=== PATIENT | female | born 1955 | race Caucasian/White ===

== ENCOUNTER 2018-05-27 14:15 | Observation (INO) ==
[2018-05-27] MEDS ORDERED: ZOFRAN INJ 4 MG VIAL IVP PRN (15:45)
[2018-05-27 16:23] LABS: BASOPHILS % (AUTO) 0.4 % (0.2-1.0); EOSINOPHILS # (AUTO) 0.2 x10^3/uL (0.0-0.2); EOSINOPHILS % (AUTO) 2.5 % (0.9-2.9); HEMATOCRIT 41.9 % (36.0-47.0); HEMOGLOBIN 14.4 g/dL (12.0-16.0); LYMPHOCYTES # (AUTO) 2.1 X10^3/uL (1.3-2.9); LYMPHOCYTES % (AUTO) 31.3 % (21.0-51.0); MEAN CORPUSCULAR HEMOGLOBIN 30.1 pg (27.0-34.0); MEAN CORPUSCULAR HGB CONC 34.4 g/dL (33.0-35.0); MEAN CORPUSCULAR VOLUME 87.6 fL (80.0-100.0); MEAN PLATELET VOLUME 8.2 fL (7.4-11.0); MONOCYTES # (AUTO) 0.6 x10^3/uL (0.3-0.8); MONOCYTES % (AUTO) 8.8 % (0.0-13.0); NEUTROPHILS # (AUTO) 3.8 x10^3/uL (2.2-4.8); PLATELET COUNT 234 X10^3/uL (150.0-450.0); RED BLOOD COUNT 4.78 X10^6/uL (3.5-5.4); RED CELL DISTRIBUTION WIDTH 13.1 % (11.6-16.5); WHITE BLOOD COUNT 6.6 X10^3/uL (3.6-10.0)
[2018-05-27] MEDS: NS 1000 ML 1,000 ML IV SCH (16:40)
[2018-05-27] MEDS: PROTONIX INJ 40 MG VIAL IVP SCH ×2 (16:40→20:22)
[2018-05-27 16:49] LABS: ALANINE AMINOTRANSFERASE 39 Units/L (12-78); ALKALINE PHOSPHATASE 64 Units/L (46-116); ASPARTATE AMINO TRANSFERASE 21 Units/L (15-37); BLOOD UREA NITROGEN 9 mg/dL (7-18); CALCIUM 8.3 mg/dL (8.5-10.1); CARBON DIOXIDE 35.5 mmol/L (21-32); CHLORIDE 108 mmol/L (98-107); CKMB % 1.5 % (<4); COR CA(FOR HYPOALB) 9.1 mg/dL (8.5-10.1); CREATINE KINASE 69 Units/L (26-192); CREATINE KINASE MB < 1.0 ng/mL (0-4.0); CREATININE 0.75 mg/dL (0.55-1.02); SODIUM 144 mmol/L (136-145); TOTAL PROTEIN 6.3 g/dL (6.4-8.2); TROPONIN I < 0.02 ng/mL (0-1.5); eGFR NON BLACK RACES > 60 (>60)
[2018-05-27 18:53] LABS: BILIRUBIN,URINE NEGATIVE (NEGATIVE); BLOOD/HEMOGLOBIN,URINE NEGATIVE (NEGATIVE); GLUCOSE, URINE NEGATIVE (NEGATIVE); KETONES,URINE NEGATIVE (NEGATIVE); LEUKOCYTE ESTERASE ,URINE 1+ (NEGATIVE); NITRITES,URINE NEGATIVE (NEGATIVE); PH,URINE 6.5 (5.0 - 8.0); PROTEIN,URINE NEGATIVE (NEGATIVE); UROBILINOGEN,URINE 2+ (NORMAL)
[2018-05-27 18:58] LABS: APPEARANCE,URINE CLEAR (CLEAR); BACTERIA,URINE TRACE /HPF (NEGATIVE); COLOR,URINE DARK YELLOW (YELLOW); MUCUS,URINE MODERATE /HPF (NEGATIVE); RBC,URINE 0-2 /HPF (NONE SEEN); SQUAMOUS EPITHELIAL CELL,UR MODERATE /HPF (NEGATIVE)
[2018-05-27] MEDS: ULTRAM PO PRN (20:23)
[2018-05-27] MEDS: AMBIEN PO PRN (20:23)
[2018-05-27] MEDS: PREPARATION H OINT RECTAL PRN (20:24)
[2018-05-27 22:38] LABS: CKMB % 1.6 % (<4); CREATINE KINASE 64 Units/L (26-192); CREATINE KINASE MB < 1.0 ng/mL (0-4.0); TROPONIN I < 0.02 ng/mL (0-1.5)
[2018-05-28] MEDS: NS 1000 ML 1,000 ML IV SCH ×3 (03:51→19:24)
[2018-05-28 04:24] LABS: BASOPHILS # (AUTO) 0.1 X10^3/uL (0.0-0.1); EOSINOPHILS # (AUTO) 0.2 x10^3/uL (0.0-0.2); EOSINOPHILS % (AUTO) 3.4 % (0.9-2.9); HEMATOCRIT 38.2 % (36.0-47.0); LYMPHOCYTES # (AUTO) 2.5 X10^3/uL (1.3-2.9); LYMPHOCYTES % (AUTO) 41.6 % (21.0-51.0); MEAN CORPUSCULAR HGB CONC 33.9 g/dL (33.0-35.0); MEAN CORPUSCULAR VOLUME 88.3 fL (80.0-100.0); MEAN PLATELET VOLUME 8.5 fL (7.4-11.0); MONOCYTES # (AUTO) 0.5 x10^3/uL (0.3-0.8); MONOCYTES % (AUTO) 8.4 % (0.0-13.0); NEUTROPHILS # (AUTO) 2.8 x10^3/uL (2.2-4.8); NEUTROPHILS % (AUTO) 45.6 % (42.0-75.0); PLATELET COUNT 204 X10^3/uL (150.0-450.0); RED BLOOD COUNT 4.33 X10^6/uL (3.5-5.4); WHITE BLOOD COUNT 6.1 X10^3/uL (3.6-10.0)
[2018-05-28 04:47] LABS: ALANINE AMINOTRANSFERASE 30 Units/L (12-78); ALBUMIN 2.6 g/dL (3.4-5.0); ALKALINE PHOSPHATASE 54 Units/L (46-116); ASPARTATE AMINO TRANSFERASE 21 Units/L (15-37); BLOOD UREA NITROGEN 10 mg/dL (7-18); CALCIUM 7.8 mg/dL (8.5-10.1); CARBON DIOXIDE 31.4 mmol/L (21-32); CHLORIDE 107 mmol/L (98-107); CKMB % 1.7 % (<4); COR CA(FOR HYPOALB) 8.9 mg/dL (8.5-10.1); CREATINE KINASE 59 Units/L (26-192); CREATINE KINASE MB < 1.0 ng/mL (0-4.0); CREATININE 0.82 mg/dL (0.55-1.02); MAGNESIUM 1.8 mg/dL (1.7-2.9); SODIUM 143 mmol/L (136-145); TOTAL PROTEIN 5.5 g/dL (6.4-8.2); TROPONIN I < 0.02 ng/mL (0-1.5); eGFR NON BLACK RACES > 60 (>60)
[2018-05-28] MEDS ORDERED: POTASSIUM CHL 40 MEQ/NS 0.45% 500 ML IV PRN (05:03)
[2018-05-28] MEDS ORDERED: POTASSIUM CHL 60 MEQ/NS 0.45% 500 ML IV PRN (05:03)
[2018-05-28] MEDS ORDERED: POTASSIUM CHLORIDE LIQ 20 MEQ UDC PO PRN (05:03)
[2018-05-28] MEDS ORDERED: K-DUR TAB 20 MEQ PO PRN (05:03)
[2018-05-28] MEDS ORDERED: MICRO K EXTEN CAP 10 MEQ PO PRN (05:03)
[2018-05-28] MEDS ORDERED: KLOR-CON PO PRN (05:03)
[2018-05-28] MEDS ORDERED: K-RIDER 10 MEQ/NS 100 ML 10 MEQ/100 ML BAG IV PRN (05:03)
[2018-05-28] MEDS: MAGNESIUM SULFATE 1 GRAM/100 mL PREMIX 1 GM/100 ML BAG IV PRN ×2 (06:01→07:04)
[2018-05-28 08:07] VITALS: BMI 29.2
[2018-05-28] MEDS: ULTRAM PO PRN (08:15)
[2018-05-28] MEDS: PROTONIX INJ 40 MG VIAL IVP SCH ×2 (08:15→20:53)
[2018-05-28] MEDS: PREPARATION H OINT RECTAL PRN (08:18)
--- NOTE | 2018-05-28 09:10 | CT ---
HISTORY: Diffuse abdominal pain Study: CT abdomen pelvis without contrast Comparison: None Technique: Axial noncontrast images with coronal and sagittal reformats. Dose reduction procedures were used with mA/kv adjusted for body size. THIS EXAMINATION IS LIMITED DUE TO THE LACK OF INTRAVENOUS AND THE LACK OF ORAL CONTRAST. The examination was performed in this manner at the sole discretion of the ordering caregiver and without input requested from or accepted from Radiology. Findings: The visualized lung bases are clear. It should be noted that the dome of the right lobe of the liver is not included on these images. The remainder of the liver appears within normal limits to the limitations of an unenhanced examination. The patient is status post cholecystectomy. The spleen, adrenal glands, and pancreas are within normal limits only to the limitations of an unenhanced examination. The kidneys are unobstructed and without stones. No ureteral calculi are identified. The abdominal aorta is within normal limits. No intraperitoneal or retroperitoneal lymphadenopathy of significance is identified. The appendix is not identified with absolute certainty. There are no secondary signs of appendicitis present. There are no findings suggestive of diverticulitis, colitis, or enteritis. Examination of the pelvis demonstrated no evidence for pelvic masses, pelvic fluid, or pelvic lymphadenopathy. No bladder abnormality is identified. Postsurgical changes are present in the lower lumbar spine with hardware present. No lytic or blastic skeletal lesions of significance are identified. IMPRESSION: No acute intra-abdominal or intrapelvic abnormality to the limitations of an examination performed without intravenous and without oral contrast. Reported By:
[2018-05-28] MEDS ORDERED: TUCKS MEDICATED PAD EXT PRN (09:23)
[2018-05-28] MEDS ORDERED: MORPHINE SULFATE INJ 2 MG INJ IVP PRN (09:23)
--- NOTE | 2018-05-28 09:27 | DR.H&P ---
H&P - History & Physical for Day of: H&P Date: 05/27/18 - Chief Complaint Chief Complaint: Weakness, Dehydration - History of Present Illness History of Present Illness: The patient is a 63-year-old white female who is a new patient that presents to [facility] care. The patient complains of weakness and not feeling good. States she has been to the ED and [facility]. States she had CT without contrast for upper abd pain. States that it was negative. Was seen in the Walk-in clinic and found to have blood in the urine as well as treated for flu day. States she's had nausea vomiting diarrhea since Saturday. States she has been taking Imodium and diarrhea has improved. States yesterday was the first day she could tolerate anything by mouth and keep it down. States her daughter did give her a liter fluid at home and she felt minimally better that day. Denies any further complaints at present. - Past Medical History Past Medical History: Anxiety, GERD - Past Surgical History Surgical History: Cholecystectomy, Hysterectomy - Family History Family Medical History: Cancer - Social History Does patient currently use any type of tobacco product: No Have you used tobacco products in the last 12 months: No Type of Tobacco Use: None Does any household member use tobacco: No Alcohol Use: None Drug Use: None - Medications Home Medications: No Known Drug Allergies Allergy (Verified 05/27/18 16:10) CONTINUE taking the following medications citalopram 40 mg PO HS 05/27/18 [History] dicyclomine 20 mg PO TID PRN 05/27/18 [History] ibuprofen [Motrin IB] 600 mg PO Q8H PRN 05/27/18 [History] oseltamivir [Tamiflu] 75 mg PO DAILY 05/27/18 [History] pantoprazole 40 mg PO DAILY 05/27/18 [History] tramadol [Ultram] 50 mg PO QID PRN 05/27/18 [History] zolpidem 10 mg PO HS 05/27/18 [History] - Review of Systems Constitutional: Weakness, Malaise Eyes: No Symptoms Reported ENT: No Symptoms Reported Respiratory: No Symptoms Reported Cardiovascular: No Symptoms Reported Gastrointestinal: Nausea, Vomiting, Abdominal Pain, Diarrhea Genitourinary: No Symptoms Reported Musculoskeletal: No Symptoms Reported Skin: No Symptoms Reported Neurological: No Symptoms Reported - Physical Exam Vital Signs: Temperature 99.4 F Pulse Rate [Right Brachial] 73 Respiratory Rate 18 Blood Pressure [Right Arm] 128/60 O2 Sat by Pulse Oximetry 94 Oriented: Normal Eyes: Normal Ear: Normal Nose: Normal Throat: Normal Respiratory: Clear Throughout Cardiovascular: Normal : Normal Auscultation: Bowel Sounds: Normal Palpation: Normal Tenderness: Epigastric Skin: Decreased Turgur Musculoskeletal: Normal Psychiatric: Normal Mood Description: Calm Affect: Normal Speech Pattern: Clear - Assessment/Plan (1) Dehydration Status: Acute Plan: Labs, IV hydration (2) Acute gastroenteritis Status: Acute Plan: Labs, IV hydration, Anti-emetics (3) Weakness Status: Acute Plan: Labs, IV hydration - Allergies Allergies/Adverse Reactions: Allergies Allergy/AdvReac Type Severity Reaction Status Date / Time No Known Drug Allergies Allergy Verified 05/27/18 16:10
[2018-05-28] MEDS ORDERED: XYLOCAINE OINT 5% TOP PRN (09:40)
[2018-05-28] MEDS: BENTYL CAP 10 MG PO PRN ×2 (11:06→20:52)
[2018-05-28] MEDS: XYLOCAINE JELLY TOP SCH ×3 (11:08→21:54)
[2018-05-28] MEDS: ANUCORT-HC SUPP PR SCH ×2 (11:08→21:54)
--- NOTE | 2018-05-28 17:35 | PCM.PROG ---
Progress Note - Progress Note for Day of Date of Exam: 05/28/18 - Subjective Subjective: 63 WF ADMITTED ON 05/27 WITH ABDOMINAL PAIN, N/V/D, DEHYDRATION AND HYPOKALEMIA. PT CURRENTLY ON POTASSIUM REPLACEMENT AND GENTLE IV HYDRATION. PT CONTINUES WITH CO ABDOMINAL TENDERNESS, CRAMPS AND BLOATING. PLAN TO ADD STOOL STUDIES AND CT ABD/PELVIS. CONTINUE PRN PAIN CONTROL, ANTIEMETICS AND PPI, REPEAT AM LABS - Past Medical Family Social History Past Med/Fam/Surg Hx: No changes since H&P Allergies: Allergies No Known Drug Allergies Allergy (Verified 05/27/18 16:10) - Review of Systems ROS: No change since H&P - Vital Signs and I&O's Vital Signs: Temperature 98.3 F Pulse Rate [Right Brachial] 63 Respiratory Rate 20 Blood Pressure [Right Arm] 117/56 O2 Sat by Pulse Oximetry 94 Intake and Output: Intake & Output 05/26/18 05/27/18 05/28/18 05/29/18 11:59 11:59 11:59 11:59 Intake Total 1130 / 1130 1501 / 1501 Balance 1130 / 1130 1501 / 1501 - Physical Exam Oriented: Normal Eyes: Normal Ear: Normal Nose: Normal Throat: Normal Respiratory: Diminished Cardiovascular: Normal : Normal Auscultation: Bowel Sounds: Normal Tenderness: Epigastric Skin: Decreased Turgur Musculoskeletal: Normal Psychiatric: Normal Mood Description: Calm Affect: Normal Speech Pattern: Clear - Laboratory and Diagnostics Result Diagrams: 05/28/18 03:55 05/28/18 08:00 Labs: Laboratory WBC 6.1 X10^3/uL (3.6-10.0) 05/28/18 03:55 RBC 4.33 X10^6/uL (3.5-5.4) 05/28/18 03:55 Hgb 13.0 g/dL (12.0-16.0) 05/28/18 03:55 Hct 38.2 % (36.0-47.0) 05/28/18 03:55 MCV 88.3 fL (80.0-100.0) 05/28/18 03:55 MCH 30.0 pg (27.0-34.0) 05/28/18 03:55 MCHC 33.9 g/dL (33.0-35.0) 05/28/18 03:55 RDW 13.0 % (11.6-16.5) 05/28/18 03:55 Plt Count 204 X10^3/uL (150.0-450.0) 05/28/18 03:55 MPV 8.5 fL (7.4-11.0) 05/28/18 03:55 Neut % (Auto) 45.6 % (42.0-75.0) 05/28/18 03:55 Lymph % (Auto) 41.6 % (21.0-51.0) 05/28/18 03:55 [place] % (Auto) 8.4 % (0.0-13.0) 05/28/18 03:55 Eos % (Auto) 3.4 % (0.9-2.9) H 05/28/18 03:55 Baso % (Auto) 1.0 % (0.2-1.0) 05/28/18 03:55 Neut # (Auto) 2.8 x10^3/uL (2.2-4.8) 05/28/18 03:55 Lymph # (Auto) 2.5 X10^3/uL (1.3-2.9) 05/28/18 03:55 [place] # (Auto) 0.5 x10^3/uL (0.3-0.8) 05/28/18 03:55 Eos # (Auto) 0.2 x10^3/uL (0.0-0.2) 05/28/18 03:55 Baso # (Auto) 0.1 X10^3/uL (0.0-0.1) 05/28/18 03:55 Absolute Nucleated RBC 0.1 /100WBC 05/28/18 03:55 Sodium 143 mmol/L (136-145) 05/28/18 03:55 Corrected Sodium TNP 05/28/18 03:55 Potassium 3.3 mmol/L (3.5-5.1) L 05/28/18 08:00 Chloride 107 mmol/L (98-107) 05/28/18 03:55 Carbon Dioxide 31.4 mmol/L (21-32) 05/28/18 03:55 BUN 10 mg/dL (7-18) 05/28/18 03:55 Creatinine 0.82 mg/dL (0.55-1.02) 05/28/18 03:55 Est GFR (MDRD) Af Amer > 60 (>60) 05/28/18 03:55 Est GFR (MDRD) Non-Af > 60 (>60) 05/28/18 03:55 Glucose 108 mg/dL (65-99) H 05/28/18 03:55 Calcium 7.8 mg/dL (8.5-10.1) L 05/28/18 03:55 Corrected Calcium 8.9 mg/dL (8.5-10.1) 05/28/18 03:55 Magnesium 1.8 mg/dL (1.7-2.9) 05/28/18 03:55 Total Bilirubin 0.20 mg/dL (0.2-1.0) 05/28/18 03:55 AST 21 Units/L (15-37) 05/28/18 03:55 ALT 30 Units/L (12-78) 05/28/18 03:55 Alkaline Phosphatase 54 Units/L (46-116) 05/28/18 03:55 Creatine Kinase 59 Units/L (26-192) 05/28/18 03:55 CK-MB (CK-2) < 1.0 ng/mL (0-4.0) 05/28/18 03:55 CK/CKMB % Calc 1.7 % (<4) 05/28/18 03:55 Troponin I < 0.02 ng/mL (0-1.5) 05/28/18 03:55 Total Protein 5.5 g/dL (6.4-8.2) L 05/28/18 03:55 Albumin 2.6 g/dL (3.4-5.0) L 05/28/18 03:55 Globulin 2.9 g/dL (2.5-4.5) 05/28/18 03:55 Albumin/Globulin Ratio 0.9 Ratio (1.1-2.1) L 05/28/18 03:55 Specimen Type Clean catch urine 05/27/18 18:45 Urine Color Dark yellow (YELLOW) 05/27/18 18:45 Urine Appearance Clear (CLEAR) 05/27/18 18:45 Urine pH 6.5 (5.0 - 8.0) 05/27/18 18:45 Ur Specific [place] 1.015 (1.000-1.030) 05/27/18 18:45 Urine Protein Negative (NEGATIVE) 05/27/18 18:45 Urine Glucose (UA) Negative (NEGATIVE) 05/27/18 18:45 Urine Ketones Negative (NEGATIVE) 05/27/18 18:45 Urine Occult Blood Negative (NEGATIVE) 05/27/18 18:45 Urine Nitrite Negative (NEGATIVE) 05/27/18 18:45 Urine Bilirubin Negative (NEGATIVE) 05/27/18 18:45 Urine Urobilinogen 2+ (NORMAL) 05/27/18 18:45 Ur Leukocyte Esterase 1+ (NEGATIVE) 05/27/18 18:45 Urine RBC 0-2 /HPF (NONE SEEN) 05/27/18 18:45 Urine WBC 0-2 /HPF (NONE SEEN) 05/27/18 18:45 Ur Squamous Epith Cells Moderate /HPF (NEGATIVE) 05/27/18 18:45 Urine Bacteria Trace /HPF (NEGATIVE) 05/27/18 18:45 Urine Mucus Moderate /HPF (NEGATIVE) 05/27/18 18:45 Ur Culture Indicated? No/not indicated 05/27/18 18:45 - Plan (1) Hypokalemia Status: Acute Plan: CONTINUE GENTLE IV HYDRATION, REPEAT AM LABS. CT ABD PELVIS (2) Dehydration Status: Acute Plan: Labs, IV hydration (3) Acute gastroenteritis Status: Acute Plan: Labs, IV hydration, Anti-emetics (4) Weakness Status: Acute Plan: Labs, IV hydration
[2018-05-28] MEDS: AMBIEN PO PRN (20:53)
[2018-05-28] MEDS ORDERED: CELEXA PO SCH (21:00)
[2018-05-29 05:33] LABS: BASOPHILS # (AUTO) 0.1 X10^3/uL (0.0-0.1); BASOPHILS % (AUTO) 1.1 % (0.2-1.0); EOSINOPHILS # (AUTO) 0.2 x10^3/uL (0.0-0.2); EOSINOPHILS % (AUTO) 4.1 % (0.9-2.9); HEMATOCRIT 38.2 % (36.0-47.0); HEMOGLOBIN 13.1 g/dL (12.0-16.0); LYMPHOCYTES # (AUTO) 2.2 X10^3/uL (1.3-2.9); LYMPHOCYTES % (AUTO) 35.5 % (21.0-51.0); MEAN CORPUSCULAR HEMOGLOBIN 30.3 pg (27.0-34.0); MEAN CORPUSCULAR HGB CONC 34.3 g/dL (33.0-35.0); MEAN CORPUSCULAR VOLUME 88.2 fL (80.0-100.0); MEAN PLATELET VOLUME 8.7 fL (7.4-11.0); MONOCYTES # (AUTO) 0.5 x10^3/uL (0.3-0.8); MONOCYTES % (AUTO) 8.7 % (0.0-13.0); NEUTROPHILS # (AUTO) 3.1 x10^3/uL (2.2-4.8); NEUTROPHILS % (AUTO) 50.6 % (42.0-75.0); PLATELET COUNT 225 X10^3/uL (150.0-450.0); RED BLOOD COUNT 4.32 X10^6/uL (3.5-5.4); RED CELL DISTRIBUTION WIDTH 13.1 % (11.6-16.5); WHITE BLOOD COUNT 6.1 X10^3/uL (3.6-10.0)
[2018-05-29 05:41] LABS: ALANINE AMINOTRANSFERASE 41 Units/L (12-78); ALBUMIN 2.6 g/dL (3.4-5.0); ALKALINE PHOSPHATASE 62 Units/L (46-116); ASPARTATE AMINO TRANSFERASE 19 Units/L (15-37); BLOOD UREA NITROGEN 10 mg/dL (7-18); CALCIUM 7.6 mg/dL (8.5-10.1); CARBON DIOXIDE 28.9 mmol/L (21-32); CHLORIDE 108 mmol/L (98-107); COR CA(FOR HYPOALB) 8.7 mg/dL (8.5-10.1); COR NA(FOR HYPERGLY) 145 mmol/L (136-145); CREATININE 0.76 mg/dL (0.55-1.02); SODIUM 144 mmol/L (136-145); TOTAL PROTEIN 5.6 g/dL (6.4-8.2); eGFR NON BLACK RACES > 60 (>60)
[2018-05-29] MEDS: NS 1000 ML 1,000 ML IV SCH (06:19)
[2018-05-29] MEDS ORDERED: PROVENTIL NEB TX 0.083% 2.5MG/ 3ML NEB ONE (09:02)
[2018-05-29] MEDS ORDERED: PULMICORT NEB TX 0.5 MG NEB ONE ×2 (09:02→09:04)
[2018-05-29] MEDS: ANUCORT-HC SUPP PR SCH (09:20)
[2018-05-29] MEDS: PROTONIX INJ 40 MG VIAL IVP SCH (09:20)
[2018-05-29] MEDS: XYLOCAINE JELLY TOP SCH ×3 (09:20→14:13)
[2018-05-29] MEDS ORDERED: SOLU-Medrol 125 MG VIAL IVP ONE (09:31)
[2018-05-29] MEDS ORDERED: TUSSIONEX PENNKINETIC SUSP PO ONE (09:31)
[2018-05-29] MEDS ORDERED: ZITHROMAX INJ 500 MG VIAL 500 MG in NS 250 ML IV 250 ML IV SCH (10:00)
[2018-05-29 14:14] VITALS: BP 107/56
== END 2018-05-29 14:55 | disposition home or self-care (01) ==
LOC: MED/SURG
PROVIDERS: ADMIT Internal Medicine; ATTEND Internal Medicine
DX: K52.89 Other specified noninfective gastroenteritis and colitis; E87.6 Hypokalemia; R19.7 Diarrhea, unspecified; K21.9 Gastro-esophageal reflux disease without esophagitis; Z79.899 Other long term (current) drug therapy; E86.0 Dehydration; F41.8 Other specified anxiety disorders; R10.84 Generalized abdominal pain; R53.1 Weakness; R11.2 Nausea with vomiting, unspecified
CPT/HCPCS: 36415; 74176; 80053; 81001; 82270; 82550; 82553; 82705; 83735; 84132; 84484; 85025; 87040; 87045; 87338; 87427; 87449; 87899; 93005; 94640; A4216; A4222; C9113; G0378; J0456; J2270; J2930; J3475; J7030; J7050; J7613; J7626